=== PATIENT | male | born 1975 ===

== ENCOUNTER 2017-11-29 02:35 | Emergency (ER) | payer BC ==
[~2017-11-29] VITALS: Ht 180.3 cm; Wt 68.0 kg
[2017-11-29 02:45] VITALS: BP 143/86
[2017-11-29] MEDS ORDERED: IBUPROFEN600 MG ORAL (03:18)
[2017-11-29 03:35] VITALS: BP 143/86
--- NOTE | 2017-11-29 04:30 | Emergency Room Report ---
History of Present Illness General Chief Complaint: Pain Source: Patient Present Illness HPI Patient is a 42-year-old male who presented after increased discomfort to both feet. Patient stated that he had been walking with wet socks on. He reported having increased pain to his feet. He denied any fever. Denied recent trauma. Allergies: Coded Allergies: No Known Allergies (Unverified , 11/29/17) Patient History Past Medical History: see triage record Reviewed Nursing Documentation: PMH: Agreed, PSxH: Agreed Review of Systems All Other Systems: negative except mentioned in HPI Physical Exam Vital Signs Date Time Temp Pulse Resp B/P (MAP) Pulse Ox O2 Delivery O2 Flow Rate FiO2 11/29/17 02:38 98.1 98 18 143/86 98 Room Air 98.1 General Appearance: well appearing, no apparent distress, alert, GCS 15 Head: normocephalic, atraumatic ENT: hearing grossly normal, normal voice Neck: full range of motion, supple Respiratory: no respiratory distress, speaking full sentences Cardiovascular #1: normal inspection, normal peripheral pulses, regular rate, rhythm Gastrointestinal: normal inspection, non tender, soft Musculoskeletal: normal inspection, back normal, no calf tenderness Neurologic: normal inspection, alert, oriented x3, responsive, residential instructor III-XII nml as tested, normal gait Psychiatric: mood/affect normal Skin: other - bilateral foot white discoloration consistent with immersion Medical Decision Making Diagnostic Impression: Primary Impression: Immersion foot ER Course Patient presented for foot pain. Differential diagnoses include was was not limited to trench foot, cellulitis, foreign body, fracture, plantar fasciitis, vascular insufficiency, sprain. Patient has a benign exam and does not appear to require any further imaging or laboratory testing at this time. The patient is advised to follow up with primary care doctor in 1-2 days. Patient is advised to return if any worsening condition or if any changes in status that are concerning. This report is dictated with [employer] crowning hammer operator software which may occasionally lead to discrepancies related to use of this software. Last Vital Signs Date Time Temp Pulse Resp B/P (MAP) Pulse Ox O2 Delivery O2 Flow Rate FiO2 11/29/17 03:35 98.1 18 143/86 98 Room Air 208.6 11/29/17 02:38 98 Status: improved Disposition: HOME, SELF-CARE Condition: Stable Scripts Ibuprofen* (MOTRIN*) 600 Mg Tablet 600 MG ORAL Q8H Y for For Pain, #30 TAB 0 Refills Prov: Roberto Washburn 11/29/17 Referrals: NON PHYSICIAN (PCP) Patient Instructions: Blisters Roberto Washburn Nov 29, 2017 04:30
== END 2017-11-29 03:35 | disposition home or self-care (01) ==
LOC: EMR 03:21
DX: T69.022A Immersion foot, left foot, initial encounter (principal); T69.021A Immersion foot, right foot, initial encounter; X31.XXXA Exposure to excessive natural cold, initial encounter
CPT/HCPCS: 99283